=== PATIENT | male | born 1975 | race Caucasian/White ===

== ENCOUNTER 2023-02-03 13:16 | Inpatient (IN) | payer BC ==
[~2023-02-03] VITALS: Ht 177.8 cm; Wt 113.6 kg
[2023-02-03 13:50] LABS: BASOPHILS % (AUTO) 0.3 % (0-1); EOSINOPHILS # (AUTO) 0.1 X10'3 (0-0.9); EOSINOPHILS % (AUTO) 0.9 % (0-6); HEMATOCRIT 43.4 % (42.0-52.0); HEMOGLOBIN 14.9 g/dl (14.0-17.9); LYMPHOCYTES # (AUTO) 0.9 X10'3 (1.1-4.8); LYMPHOCYTES % (AUTO) 6.4 % (21-51); MEAN CORPUSCULAR HEMOGLOBIN 31.5 PG (27.0-31.0); MEAN CORPUSCULAR HGB CONC 34.4 g/dL (33.0-36.5); MEAN CORPUSCULAR VOLUME 91.6 FL (78-98); MEAN PLATELET VOLUME 7.4 FL (7.4-10.4); MONOCYTES # (AUTO) 1.3 X10'3 (0-0.9); MONOCYTES % (AUTO) 9.6 % (2-12); NEUTROPHILS # (AUTO) 11.3 X10'3 (1.8-7.7); NEUTROPHILS % (AUTO) 82.8 % (42-75); PLATELET COUNT 231 X10'3 (140-440); RED BLOOD COUNT 4.74 X10'6 (4.70-6.10); RED CELL DISTRIBUTION WIDTH 13.5 % (11.5-14.5); WHITE BLOOD COUNT 13.6 X10'3 (4.5-11.0)
[2023-02-03 14:07] LABS: ALANINE AMINOTRANSFERASE 90 U/L (12-78); ALBUMIN 3.8 G/DL (3.4-5.0); ALKALINE PHOSPHATASE 80 IU/L (46-116); ANION GAP 10 (8-16); ASPARTATE AMINO TRANSFERASE 45 U/L (10-37); BILIRUBIN,TOTAL 0.6 MG/DL (0.1-1.0); BLOOD UREA NITROGEN 20 MG/DL (7-18); BUN/CREATININE RATIO 16.3 (10.0-20.0); CALCIUM 8.5 MG/DL (8.5-10.1); CHLORIDE 98 MMOL/L (99-107); CREATININE 1.23 MG/DL (0.60-1.10); GLUCOSE 118 MG/DL (70-104); POTASSIUM 3.8 MMOL/L (3.5-5.1); SODIUM 134 MMOL/L (135-145); TOTAL CARBON DIOXIDE 25.6 MMOL/L (24-32); TOTAL PROTEIN 7.6 G/DL (6.4-8.2); eGFR 63 ML/MIN
[2023-02-03] MEDS ORDERED: aspirin 81mg tab.chew PO ONE (15:55)
[2023-02-03] MEDS ORDERED: methylPREDNISolone sod succ 125mg/2ml vial IV ONE (15:55)
[2023-02-03 16:27] LABS: D-DIMER 0.45 MG/L FEU (0-0.50)
[2023-02-03] MEDS ORDERED: cloNIDine 0.1 mg tablet PO ONE (17:20)
[2023-02-03] MEDS ORDERED: potassium Cl 20 mEq SR tablet PO PRN ×2 (17:25)
[2023-02-03] MEDS ORDERED: morphine 2 MG/ML inj. syringe IV PRN ×2 (17:25)
[2023-02-03] MEDS ORDERED: acetaminophen 325mg tablet PO PRN ×2 (17:25)
[2023-02-03] MEDS ORDERED: magnesium Cl slow-release 64mg tablet PO PRN (17:25)
[2023-02-03] MEDS ORDERED: ondansetron/PF 4mg/2ml inj IV PRN (17:25)
[2023-02-03] MEDS ORDERED: potassium Cl 40MEQ/1/2NS 520ml 520 ML IV PRN (17:25)
[2023-02-03] MEDS ORDERED: magnesium 4gm in 100ml NS 100 ML IV PRN (17:25)
[2023-02-03] MEDS ORDERED: HYDROcodone/acetaminophen 10/325mg tab PO PRN (17:25)
[2023-02-03] MEDS ORDERED: HYDROcodone/acetaminophen 5mg/325mg tablet PO PRN (17:25)
[2023-02-03] MEDS ORDERED: magnesium 2GM in 50ml NS 50 ML IV PRN (17:25)
[2023-02-03] MEDS ORDERED: aminophylline 250mg/10ml inj. IV PRN (17:30)
[2023-02-03] MEDS ORDERED: regadenoson 0.4mg/5ml syringe IV PRN (17:30)
[2023-02-03] MEDS ORDERED: metoprolol tartrate 1mg/ml inj IV PRN (17:30)
[2023-02-03] MEDS ORDERED: nitroGLYCERIN 0.4mg SUBLingual tab SL PRN (17:30)
[2023-02-03] MEDS ORDERED: LORazepam 1 MG tablet PO PRN (18:10)
[2023-02-03] MEDS ORDERED: LORazepam 2 mg/ml vial IV PRN (18:10)
[2023-02-03] MEDS: normal saline 1000ml 1,000 ML IV SCH (18:20)
[2023-02-03] MEDS: lisinopril 10 MG tablet PO SCH (18:28)
[2023-02-03] MEDS ORDERED: NO HOME MEDS (18:57)
[2023-02-03] MEDS ORDERED: enoxaparin 40mg/0.4ml syringe SQ SCH (20:00)
--- NOTE | 2023-02-03 20:42 | NUR ---
RECEIVED REPORT FROM ER, AWAITING PT ARRIVAL. Addendum: 02/03/23 at 2043 by Jose Flannery RN Amended: Links added.
--- NOTE | 2023-02-03 20:54 | NUR ---
received pt from Er, oriented to room and routine. Addendum: 02/03/23 at 2053 by Jose Flannery RN Amended: Links added.
[2023-02-03] MEDS ORDERED: temazepam 15mg capsule PO PRN (21:00)
[2023-02-03] MEDS ORDERED: CefTRIAXone 2gm/D5W 50ml BAG 50 ML IV ONE (21:00)
--- NOTE | 2023-02-03 21:51 | NUR ---
Report given back to Nighat DURHAM, she will assume pt care. Addendum: 02/03/23 at 2151 by Jose Flannery RN Amended: Links added.
[2023-02-03 23:00] VITALS: BP 104/55
[2023-02-04] VITALS (10 sets, daily range): BP systolic 119–137; BP diastolic 68–83
--- NOTE | 2023-02-04 06:00 | NUR ---
Patient in room PCU 3026. I have received report from Nighat DURHAM and had the opportunity to ask questions and assume patient care.
[2023-02-04 06:02] LABS: BASOPHILS % (AUTO) 0 % (0-1); EOSINOPHILS % (AUTO) 0 % (0-6); HEMATOCRIT 43.6 % (42.0-52.0); HEMOGLOBIN 14.5 g/dl (14.0-17.9); LYMPHOCYTES # (AUTO) 0.8 X10'3 (1.1-4.8); LYMPHOCYTES % (AUTO) 5.4 % (21-51); MEAN CORPUSCULAR HEMOGLOBIN 30.8 PG (27.0-31.0); MEAN CORPUSCULAR HGB CONC 33.3 g/dL (33.0-36.5); MEAN CORPUSCULAR VOLUME 92.6 FL (78-98); MEAN PLATELET VOLUME 7.9 FL (7.4-10.4); MONOCYTES # (AUTO) 0.3 X10'3 (0-0.9); MONOCYTES % (AUTO) 2.1 % (2-12); NEUTROPHILS # (AUTO) 13.7 X10'3 (1.8-7.7); NEUTROPHILS % (AUTO) 92.5 % (42-75); PLATELET COUNT 273 X10'3 (140-440); RED BLOOD COUNT 4.71 X10'6 (4.70-6.10); RED CELL DISTRIBUTION WIDTH 13.2 % (11.5-14.5); WHITE BLOOD COUNT 14.8 X10'3 (4.5-11.0)
[2023-02-04 06:14] LABS: ALANINE AMINOTRANSFERASE 70 U/L (12-78); ALBUMIN 3.3 G/DL (3.4-5.0); ALBUMIN/GLOBULIN RATIO 0.8 (1.1-1.5); ALKALINE PHOSPHATASE 75 IU/L (46-116); ANION GAP 7 (8-16); ASPARTATE AMINO TRANSFERASE 30 U/L (10-37); BILIRUBIN,TOTAL 0.4 MG/DL (0.1-1.0); BLOOD UREA NITROGEN 19 MG/DL (7-18); CALCIUM 8.6 MG/DL (8.5-10.1); CHLORIDE 102 MMOL/L (99-107); CHOL/HDL RATIO 4.3 (0.00-4.99); CHOLESTEROL 235 MG/DL (0-200); GLUCOSE 169 MG/DL (70-104); HDL CHOLESTEROL 55 MG/DL (35-60); LDL CHOLESTEROL 150 MG/DL (50-100); LIPASE 177 U/L (73-393); MAGNESIUM 2.4 MG/DL (1.5-2.4); PHOSPHORUS 3.5 MG/DL (2.3-4.5); POTASSIUM 4.2 MMOL/L (3.5-5.1); SODIUM 135 MMOL/L (135-145); TOTAL CARBON DIOXIDE 25.8 MMOL/L (24-32); TOTAL PROTEIN 7.4 G/DL (6.4-8.2); TRIGLYCERIDES 165 MG/DL (20-135); eGFR 80 ML/MIN
[2023-02-04] MEDS: normal saline 1000ml 1,000 ML IV SCH (07:48)
[2023-02-04] MEDS ORDERED: pantoprazole 40mg Tablet.DR PO SCH (08:00)
[2023-02-04] MEDS ORDERED: atorvastatin 20mg tablet PO ONE (08:40)
[2023-02-04] MEDS: lisinopril 10 MG tablet PO SCH (08:57)
--- NOTE | 2023-02-04 12:45 | NUR ---
AGREE WITH TAPE CUTTER AM ASSESSMENT.
--- NOTE | 2023-02-04 13:11 | NUR ---
PAGER ID: [phone] MESSAGE: [email or web address], JORGEI EDDIE REPORT IS AVAILABLE ON 3026B, THX. (62 character message out of a maximum of 240) CLOSE [X] SEND ANOTHER PAGE Thank you for visiting [facility] promotional table spacer promotional table spacer
[2023-02-04] MEDS ORDERED: CLON0.1T2 PO (13:42)
[2023-02-04] MEDS ORDERED: ATOR40TA71 PO (13:42)
[2023-02-04] MEDS ORDERED: LISI10TA27 PO (13:42)
--- NOTE | 2023-02-04 14:55 | NUR ---
Patient discharged at 1450. Discharge instuctions given and all questions answered. All belongings sent with patient. Patient left in private vehicle with . IV and tele discontinued, tele monitor returned to [email or web address].
[2023-02-05] MEDS ORDERED: atorvastatin 20mg tablet PO SCH (08:00)
[2023-02-08] MEDS ORDERED: thiamine 100mg tablet PO SCH (08:00)
[2023-02-08] MEDS ORDERED: folic acid 1mg tablet PO SCH (08:00)
== END 2023-02-04 14:49 | disposition home or self-care (01) | DRG 304 ==
LOC: ER 13:17 → ED HOLD 17:28 → EDBEDREQ 19:54 → PCU 3S 20:54
PROVIDERS: ADMIT Internal Medicine; ATTEND Internal Medicine
DX: I16.1 Hypertensive emergency (principal); N17.0 Acute kidney failure with tubular necrosis; T67.01XA Heatstroke and sunstroke, initial encounter; N17.9 Acute kidney failure, unspecified; E86.9 Volume depletion, unspecified; D72.829 Elevated white blood cell count, unspecified; E78.00 Pure hypercholesterolemia, unspecified; K21.9 Gastro-esophageal reflux disease without esophagitis; I12.9 Hypertensive chronic kidney disease with stage 1 through stage 4 chronic kidney disease, or unspecified chronic kidney disease; N18.30 Chronic kidney disease, stage 3 unspecified; E11.22 Type 2 diabetes mellitus with diabetic chronic kidney disease
CPT/HCPCS: 36415; 71045; 78452; 80053; 80061; 83690; 83735; 83880; 84100; 84145; 84484; 85025; 85379; 87081; 93017; 93306; 96374; 99285; A9500; G0378; J0696; J1650; J2785; J2930; J7030